=== PATIENT | female | born 2000 | race Caucasian/White ===

== ENCOUNTER 2023-12-10 17:54 | Emergency (ER) | payer OTHER, SELFPAY ==
[2023-12-10 18:10] VITALS: BP 158/82; PULSE 72; RESP 16; TEMP 37.3; O2SAT 99
--- NOTE | 2023-12-10 18:30 | ED.NAVMDI ---
HPI - Nausea/Vomiting/Diarrhea General Chief complaint: Nausea/Vomiting/Diarrhea Stated complaint: throwing up/diarrhea w/ blood Time Seen by Provider: 12/10/23 18:17 Source: patient and RN notes reviewed Mode of arrival: ambulatory Limitations: no limitations History of Present Illness HPI Narrative: Patient presents today complaining nausea, vomiting, diarrhea that started at 10:00 p.m. last night. At 1:00 a.m. patient started passing bright red blood per rectum without any stool. She has had abdominal pain, primarily lower abdominal pain she currently rates 5/10. Her last vomiting episode was 9:00 a.m.. She is still having intermittent nausea. She continues to have blood per rectum even after arrival at [facility] today. Denies fever or feeling feverish. She tried 1 Pepto-Bismol tablets without relief of symptoms. No history of abdominal issues. No history of hemorrhoids, constipation, anal fissures. Related Data Home Medications Medication Instructions Recorded Confirmed fluoxetine 20 mg tablet 20 mg PO DAILY 12/10/23 12/10/23 norgestrel 0.3 mg-ethinyl 1 tablet PO DAILY 12/10/23 12/10/23 estradiol 30 mcg tablet (Low-Ogestrel (28)) Allergies Allergy/AdvReac Type Severity Reaction Status Date / Time No Known Allergies Allergy Verified 12/10/23 17:58 Review of Systems Review of Systems: CONSTITUTIONAL: Denies body aches, fever, chills, or sweats. EYES: Denies visual changes, redness, or discharge. ENT: Denies rhinorrhea, congestion, sore throat, or otalgia. CARDIOVASCULAR: Denies chest pain, palpitations, or edema. RESPIRATORY: Denies cough or dyspnea. GASTROINTESTINAL: + abdominal pain, nausea, vomiting, diarrhea, blood per rectum GENITOURINARY: Denies dysuria or hematuria. SKIN: Denies rash, itching, or wounds. MUSCULOSKELETAL: Denies back pain, joint pain, or myalgia. NEUROLOGIC: Denies headache, numbness, tingling, or weakness. PSYCH: Denies depression or anxiety. [facility] Past Medical History Medical History (Updated 12/10/23 @ 18:35 by Dorys Ortiz, JOSE MARIA, ) Anxiety Surgical History Surgical History (Updated 12/10/23 @ 18:33 by Dorys Ortiz, JOSE MARIA, ) Hx of tonsillectomy Comments At time of signature, I have reviewed and agree with nursing past medical, surgical, social and family history unless otherwise noted. Please see nursing chart for further information. There is no relevant family history pertinent to the presenting complaint Exam Narrative: GENERAL: Well-appearing, well-nourished, and in no acute distress. HEAD: Normocephalic, atraumatic. EYES: EOMI. No redness or drainage. Conjunctivae normal. ENT: Mucous membranes pink and moist. NECK: Normal AROM. CHEST: No respiratory distress. Clear to auscultation. HEART: Regular rate and rhythm. No murmur appreciated. ABDOMEN: Soft, nondistended, normal active bowel sounds. Mild tenderness to the left lateral abdomen and periumbilical areas without guarding or rebound. EXTREMITIES: Normal range of motion. No edema. SKIN: Warm, dry, no rash. Capillary refill normal. Normal skin turgor. NEURO: No focal deficits. Alert and oriented x3. Gait steady. PSYCH: Normal affect. No signs of depression or anxiety. Course Course Level of Care: Express Care Visit Vital Signs Vital signs: Vital Signs Temperature 99.1 F 12/10/23 18:10 Pulse Rate 72 12/10/23 18:10 Respiratory Rate 16 12/10/23 18:10 Blood Pressure 158/82 H 12/10/23 18:10 Pulse Oximetry 99 12/10/23 18:10 Oxygen Delivery Room Air 12/10/23 18:10 Temperature 99.1 F 12/10/23 18:10 Pulse Rate 72 12/10/23 18:10 Respiratory Rate 16 12/10/23 18:10 Blood Pressure 158/82 H 12/10/23 18:10 Pulse Oximetry 99 12/10/23 18:10 Oxygen Delivery Room Air 12/10/23 18:10 Reviewed Transfer Transfered to: [facility] Transportation: Other (Private vehicle) Transfer rationale: Abdominal pain, bright red blood per rectum Ac
== END 2023-12-10 18:35 | disposition short-term general hospital (02) ==
PROVIDERS: Emergency Provider Nurse Practitioner; PCP Family Medicine Adolescent Medicine
DX: K62.5 Hemorrhage of anus and rectum (principal); R10.31 Right lower quadrant pain; R10.32 Left lower quadrant pain; F41.9 Anxiety disorder, unspecified
CPT/HCPCS: 99212; G0463

== ENCOUNTER 2023-12-10 18:46 | Emergency (ER) | payer OTHER, SELFPAY ==
[2023-12-10] VITALS (12 sets, daily range): BP systolic 111–143; BP diastolic 62–97; PULSE 64–96; RESP 12–25; TEMP 36.8; O2SAT 97–100
--- NOTE | ~2023-12-10 | CT_ITS ---
CT abdomen pelvis w con Ordering provider: Desmond Pillai APRN History: 23 years Female with . upper and lower abdomen pain with gi bleed . Comparison: None. Technique: CT abdomen and pelvis with IV and without oral contrast. Automated exposure control and it erative reconstruction technique were employed. The dose-length product was 854.70 mGy-cm. 100 mL Omn ipaque 350 was given IV. Findings: VISUALIZED LOWER CHEST: Normal. UPPER ABDOMINAL ORGANS: Liver: Normal. Gallbladder: Normal. Spleen: Normal. Stomach/duodenum: Normal. Pancreas: Normal. Adrenals: Normal. Kidneys: Slight fullness of the right renal pelvis. Minimal fullness on the left. No stones seen in t he ureters. PELVIC ORGANS: The bladder is slightly underfilled. The uterus is normal. BOWEL AND MESENTERY: Colon: No evidence of diverticulitis. Slight thickening of the wall of the sigmoid colon is seen whic h may indicate colitis. Normal appendix. Small Bowel: No evidence of obstruction. 2 areas of increased density are seen in the small bowel whi ch are most likely due to previous intake of contrast as the density is more than the density in the blood vessels.. Otherwise, very active bleeding cannot be excluded although less likely. Clinical jessica luation advised. Peritoneum/mesentery: No free air or free fluid. No mesenteric lymphadenopathy. Small mesenteric lymp h nodes are seen with the largest measures 0.9 cm. RETROPERITONEUM: Normal aorta. Retroaortic left renal vein is seen. No retroperitoneal lymphadenopat hy. MUSCULOSKELETAL: Superficial soft tissues: The superficial soft tissues are normal. Bones: Normal spine. IMPRESSION: 1. No acute abdominal process with no evidence of appendicitis, diverticulitis or intestinal obstruc tion. 2. Minimal fullness of the renal pelvis bilaterally with no stones in the ureters. 3. Hyperdense material seen in the small bowel most likely due to previous intake of oral contrast. Clinical correlation advised. Other differential is very active bleeding although less likely. Reviewed, dictated and finalized at location A. IMPRESSION: 1. No acute abdominal process with no evidence of appendicitis, diverticulitis or intestinal obstruction. 2. Minimal fullness of the renal pelvis bilaterally with no stones in the uret ers. 3. Hyperdense material seen in the small bowel most likely due to previous int lee of oral contrast. Clinical correlation advised. Other differential is very active bleeding although less likely.
--- NOTE | 2023-12-10 18:58 | ED.GIBLEED ---
HPI - GI Bleed General Chief complaint: GI Bleed <Desmond Pillai APRN - Last Filed: 12/11/23 01:32> Stated complaint: rectal bleeding <Desmond Pillai APRN - Last Filed: 12/11/23 01:32> Time Seen by Provider: 12/10/23 18:50 <Desmond Pillai APRN - Last Filed: 12/11/23 01:32> Source: patient <Desmond Pillai APRN - Last Filed: 12/11/23 01:32> Mode of arrival: ambulatory <Desmond Pillai APRN - Last Filed: 12/11/23 01:32> Limitations: no limitations <Desmond Pillai APRN - Last Filed: 12/11/23 01:32> History of Present Illness HPI Narrative: Roya is a 23-year-old female patient presenting to the ER today with complaints of rectal bleeding and upper and lower abdominal pain that started around 10:00 p.m. last night. Reports that she 1st noticed blood in her stool at 1:00 a.m. this morning. Has vomited 5 times and has had multiple episodes of diarrhea. Last menstrual period was 3 weeks ago. Patient was able to show me a picture of blood in the stool and it showed some small clots. No history of ever being scoped in the past. States that she is pretty regular with bowel movements and has no concern for constipation.Denies any concern for . Hemoccult-positive. Denies any urinary symptoms. Denies any rectal pain or recent trauma. <Desmond Pillai APRN - Last Filed: 12/11/23 01:32> Related Data Home medications: Home Medications Medication Instructions Recorded Confirmed fluoxetine 20 mg tablet 20 mg PO DAILY 12/10/23 12/10/23 norgestrel 0.3 mg-ethinyl 1 tablet PO DAILY 12/10/23 12/10/23 estradiol 30 mcg tablet (Low-Ogestrel (28)) <Desmond Pillai APRN - Last Filed: 12/11/23 01:32> Allergies/Adverse reactions: Allergies Allergy/AdvReac Type Severity Reaction Status Date / Time No Known Allergies Allergy Verified 12/10/23 17:58 <Desmond Pillai APRN - Last Filed: 12/11/23 01:32> Review of Systems Review of Systems: Pertinent positives per HPI. Patient denies any fever, chills, rash, headache, visual changes, dizziness, cough, runny nose, sore throat, shortness of breath, chest pain, palpitations, constipation, or any urinary issues. <Desmond Pillai APRN - Last Filed: 12/11/23 01:32> PMFSH Past Medical History Medical History: Medical History Anxiety <Desmond Pillai APRN - Last Filed: 12/11/23 01:32> Surgical History Surgical History: Surgical History Hx of tonsillectomy <Desmond Pillai APRN - Last Filed: 12/11/23 01:32> Comments At the time of my signature, I reviewed and agree with the nursing past medical, surgical, social, and family history. There is no relevant family history pertinent to the patient complaint. <Desmond Pillai APRN - Last Filed: 12/11/23 01:32> Exam Narrative: General: Well-developed, well nourished, in no apparent distress. Head: Normocephalic, atraumatic. Cardio: Regular rate and rhythm, s1 and s2 normal, no murmur appreciated. Resp: Clear to auscultation bilaterally, no rhonchi, rales, wheezing or rubs. Abdomen: Soft, pliable, bowel sounds present in all quadrants, mild tenderness to palpation to the epigastrium, luq, and over the lower bilateral abdomen, no organomegly, no CVAT tenderness. <Desmond Pillai APRN - Last Filed: 12/11/23 01:32> Course Course Emergency Course: Portions of this record may have been created with voice recognition software. <Desmond Pillai APRN - Last Filed: 12/11/23 01:32> CAREER ADVISOR/PA Physician Supervision Patient's HPI, Exam, and MDM were reviewed and I agreed with the workup and disposition done in the emergency department by the MLP. I independently evaluated the patient and provided my on additional workup in the EMR. Patient does have historical features c
[2023-12-10 19:06] LABS: Basophils Percent Auto 0.4 % (0.2-1.2); Eosinophils Absolute Auto 0.1 K/mm3 (0-0.3); Eosinophils Percent Auto 1.4 % (0-4.4); Hematocrit 39.9 % (37.0-47.0); Hemoglobin 12.2 g/dL (12.0-15.0); Immature Granulocyte Absolute 0.02 K/mm3 (0.00-0.031); Immature Granulocyte Percent A 0.2 % (0-0.5); Lymphocytes Percent Auto 29.3 % (18.3-44.2); Mean Corpuscular HGB Conc 30.6 g/dl (32-36); Mean Corpuscular Hemoglobin 23.5 pg (26-34); Mean Corpuscular Volume 76.9 fl (80-100); Mean Platelet Volume 10.1 fl (7.4-10.4); Monocytes Absolute Auto 0.7 K/mm3 (0.1-0.6); Monocytes Percent Auto 7.9 % (2.6-8.5); Neutrophils Absolute Auto 5.6 K/mm3 (1.3-6.7); Neutrophils Percent Auto 60.8 % (45.5-73.1); Platelet Count Result 432 k/mm3 (150-375); Red Blood Count 5.19 M/mm3 (4.2-5.4); Red Cell Distribution Width 15.9 % (11.5-14.5); White Blood Count 9.2 K/mm3 (4.5-10.0)
[2023-12-10 19:17] LABS: Alanine Aminotransferase 29 U/L (6-35); Albumin Level 4.7 g/dL (3.5-5.1); Alkaline Phosphatase 132 U/L (38-126); Anion Gap 12 mmol/L (4-12); Aspartate Amino Transferase 31 U/L (14-36); Bilirubin,Total 0.4 mg/dL (0.2-1.3); Blood Urea Nitrogen 5 mg/dL (7-17); Calcium 9.4 mg/dL (8.4-10.2); Carbon Dioxide 24 mmol/L (22-30); Chloride 103 mmol/L (98-107); Estimated CRCL calculation 183 ml/min; Estimated Glomerular Filt Rate > 60; Glucose 95 mg/dL (65-110); Lipase 67 U/L (23-300); Potassium 3.5 mmol/L (3.4-5.0); Sodium 139 mmol/L (137-145)
[2023-12-10 19:18] LABS: Partial Thromboplastin Time 26.4 Seconds (22.3-36.8); Prothrombin Time 12.9 Seconds (11.1-14.7)
[2023-12-10 19:19] LABS: BEDSIDEPREGUCG Negative
[2023-12-10 19:34] LABS: Appearance Urine Clear (Clear); Bacteria Urine 2+ /hpf; Bilirubin Urine Negative (Negative); Blood Urine Negative (Negative); Color Urine Yellow (Yellow); Glucose Urine UA Negative (Negative); Ketones Urine Trace mg/dL (Negative); Leukocyte Esterase Ur Negative LEU/UL (Negative); Need Manual Microscopic Reviewed; Nitrate Urine Negative (Negative); Non Pathogenic Casts 0-2; Protein Urine Trace mg/dL (Negative); Specific Grav Ur 1.021 (1.001-1.035); Squamous Epithelial Cell Urine Few /hpf (Few); WBC Urine 0-5 /hpf (0-3); pH Urine 6.5 (5.0-9.0)
[2023-12-10 19:36] LABS: Add Urine Microscopic? YES
[2023-12-10] MEDS: PANTOPRAZOLE SODIUM IV 40 MG VIAL 80 MG IV PUSH (21:13)
[2023-12-10 21:20] LABS: Hematocrit 36.8 % (37.0-47.0); Hemoglobin 11.4 g/dL (12.0-15.0)
--- NOTE | 2023-12-10 21:27 | PC.NURSE ---
Kari from [facility] transfer center called to do a triage assessment
[2023-12-11 00:30] VITALS: BP 148/84; PULSE 65; RESP 16; O2SAT 99
== END 2023-12-11 02:27 | disposition short-term general hospital (02) ==
PROVIDERS: Student in an Organized Health Care Education/Training Program; Emergency Provider Nurse Practitioner Family; PCP Family Medicine Adolescent Medicine
DX: K62.5 Hemorrhage of anus and rectum (principal); D50.0 Iron deficiency anemia secondary to blood loss (chronic); R10.84 Generalized abdominal pain
CPT/HCPCS: 36415; 74177; 80053; 81001; 81025; 83690; 85014; 85018; 85025; 85610; 85730; 86850; 86900; 86901; 96374; 99285; J2470; Q9967